=== PATIENT | male | born 1980 | race Caucasian/White ===

== ENCOUNTER 2022-02-13 14:30 | Emergency (ER) | payer OTHER ==
[2022-02-13 18:09] LABS: HEMOGLOBIN 15.2 gm/dl (14.0-17.5); RED BLOOD COUNT 5.12 M/UL (4.20-5.50); WHITE BLOOD COUNT 10.9 K/UL (4.5-11.0)
[2022-02-13 18:38] LABS: BUN/CREATININE RATIO 10 (0-10)
== END 2022-02-13 22:19 ==
LOC: ER1 14:30
PROVIDERS: Family Medicine
DX: R07.89 Other chest pain (principal); F17.200 Nicotine dependence, unspecified, uncomplicated
CPT/HCPCS: 71045; 80053; 82550; 82553; 84484; 85025; 87040; 93005; 99285